=== PATIENT | male | born 1990 | race Hispanic/Latino ===

== ENCOUNTER 2020-12-22 23:09 | Emergency (ER) | payer BC ==
[2020-12-22] MEDS ORDERED: SODIUM CHLORIDE 0.9% 1000 ML 1,000 ML IV ONE (23:26)
[2020-12-22] MEDS ORDERED: ONDANSETRON 4 MG/2 ML INJ IM ONE (23:27)
--- NOTE | 2020-12-22 23:29 | Emergency Department Report ---
History of Present Illness - General Chief Complaint: Altered Mental Status Stated Complaint: OVERDOSE Time Seen by Provider: 12/22/20 23:09 Source: EMS Mode of arrival: Stretcher Limitations: Altered Mental Status, Physical Limitation - History of Present Illness Initial Comments: Patient is a male patient of unknown age that presents to the emergency room for overdose and altered mental status. Patient was brought in by EMS. EMS states that the patient was picked up at a local hotel. EMS states they do not know the patient's name or age. EMS states that they found the patient with pinpoint pupils and gave the patient 4 mg of Narcan and no response. Patient's vital signs are stable. Patient oxygenating well. -: Sudden Treatments Prior to Arrival: oxygen, narcan, IV fluids - Related Data Previous Rx's Medication Instructions Recorded Last Taken Type levoFLOXacin [Levaquin TAB] 500 mg PO QDAY 10 Days #10 tablet 12/23/20 Unknown Rx Allergies Allergy/AdvReac Type Severity Reaction Status Date / Time No Known Allergies Allergy Verified 12/23/20 00:15 ED Review of Systems ROS: Stated complaint: OVERDOSE Other details as noted in HPI Comment: Unobtainable due to pts medical conditions ED Past Medical Hx - Past Medical History Previous Medical History?: No - Surgical History Past Surgical History?: No - Family History Family history: no significant - Social History Smoking Status: Unknown if ever smoked Substance Use Type: Other - Medications Home Medications: Home Medications Medication Instructions Recorded Confirmed Last Taken Type levoFLOXacin [Levaquin TAB] 500 mg PO QDAY 10 Days #10 tablet 12/23/20 Unknown Rx ED Physical Exam - General Limitations: Altered Mental Status General appearance: obtunded - Head Head exam: Present: atraumatic, normocephalic - Eye Eye exam: Present: normal appearance, other (Pupils pinpoint) - ENT ENT exam: Present: mucous membranes dry - Neck Neck exam: Present: normal inspection - Respiratory Respiratory exam: Present: normal lung sounds bilaterally. Absent: respiratory distress, wheezes, rales - Cardiovascular Cardiovascular Exam: Present: regular rate, normal rhythm. Absent: systolic m urmur, diastolic murmur, rubs, gallop - GI/Abdominal GI/Abdominal exam: Present: soft, normal bowel sounds - Rectal Rectal exam: Present: deferred - Extremities Exam Extremities exam: Present: normal inspection - Back Exam Back exam: Present: normal inspection - Neurological Exam Neurological exam: Present: altered - Expanded Neurological Exam Expanded Best Eye Response ([place]): (2) open to pain Best Motor Response ([place]): (5) localizes to pain Best Verbal Response ([place]): (2) incomprehsible sounds [place] Total: 9 - Skin Skin exam: Present: warm, dry, intact, normal color. Absent: rash ED Course Vital Signs 12/22/20 23:58 Temperature 97 F L Pulse Rate 85 Respiratory 14 Rate Blood Pressure 121/57 [Right] O2 Sat by Pulse 96 Oximetry - Reevaluation(s) Reevaluation #1: After initial evaluation, the patient began to projectile vomit. Patient will be given Zofran and IV placed. 12/22/20 23:26 Reevaluation #2: No change in neuro status. Patient arousable with pain. Patient is on the supervisor forming and tempering. Patient's vital signs are stable. Patient is 97% on room air. 12/23/20 00:04 Reevaluation #3: Patient is awake alert and oriented x3. Patient states she took GHB. Patient denies suicidal ideation. Patient states he was just trying to get high. 12/23/20 01:15 Reevaluation #4: Patient is awake alert and oriented x4. Patient denies suicidal ideation. Patient denies suicide attempt. Patient is stable for discharge. I discussed all results and clinical findings with patient. I discussed plan of care with patient. Patient agrees with plan of care. Patient is stable for discharge. Patient will be discharged home. Patient given discharge instructions. Patient voiced understanding of discharge instructions. 12/23/20 02:17 ED Medical Decision Making - Lab Data Result diagrams: 12/22/20 23:39 12/22/20 23:39 - EKG Data -: EKG Interpreted by Me EKG shows normal: sinus rhythm, axis, intervals, QRS complexes, ST-T waves Rate: normal - Radiology Data Radiology results: report reviewed, image reviewed interpreted by me: Chest x-ray: Possible pneumonia, no pneumothorax, no foreign body, no osseous findings, CT HEAD WITHOUT CONTRAST INDICATION / CLINICAL INFORMATION: Altered Mental Status. TECHNIQUE: All CT scans at this location are performed using CT dose reduction for ALARA by means of automated exposure control. COMPARISON: None available. FINDINGS: Motion artifact slightly limits examination. No acute intracranial hemorrhage. Ventricles are normal in size without midline shift mass effect. Mild ethmoid sinus disease. No acute bone findings. ADDITIONAL FINDINGS: None. IMPRESSION: 1. No acute intracranial abnormality. CHEST 1 VIEW 12/22/2020 10:53 PM INDICATION / CLINICAL INFORMATION: ams. COMPARISON: None available. FINDINGS: SUPPORT DEVICES: None. HEART / MEDIASTINUM: No significant abnormality. LUNGS / PLEURA: Low lung volumes with mild increase vascularity and interstitial prominence. No pneumothorax. - Medical Decision Making Patient is a 30-year-old male that presents emergency room with a drug overdose. Patient brought in by EMS and was unresponsive. Patient was given Narcan by EMS. No response with the Narcan. Patient was initially unresponsive and registered as a medical emergency. Patient later woke up and was able to provide his information. Patient stated that he took GHB with the intent of getting high. Patient denied suicidal ideations. Patient denied suicide attempt. Patient had labs done which were essentially unremarkable except for UTI on UA and elevated WBC. Patient given fluids in the ER. Patient had a chest x-ray done which was positive for a possible pneumonia. Patient will be treated for aspiration volume with Levaquin. Patient will need to follow-up with primary care for recheck of his lungs and labs. Patient had a head CT since he had altered mental status and was negative for acute findings. Patient EKG which was negative for acute findings showed a normal ST. I personally reviewed the x-ray and the EKG. Patient is stable for discharge. Patient does not require further emergency medical service or inpatient services. Patient will be discharged home. Patient given discharge instructions. Critical care time documented due to the multiple reassessments, prolonged time at the bedside, interpretation of diagnostics and labs. - Differential Diagnosis Overdose, altered mental status, ICH Critical Care Time: Yes Critical care time in (mins) excluding proc time.: 35 Critical care attestation.: If time is entered above; I have spent that time in minutes in the direct care of this critically ill patient, excluding procedure time. Critical Care Time: 35 MINUTES ED Disposition Clinical Impression: Altered mental status Qualifiers: Altered mental status type: unspecified Qualified Code(s): R41.82 - Altered mental status, unspecified Overdose Qualifiers: Encounter type: initial encounter Injury intent: accidental or unintentional Qualified Code(s): T50.901A - Poisoning by unspecified drugs, medicaments and biological substances, accidental (unintentional), initial encounter Urinary tract infection Qualifiers: Urinary tract infection type: acute cystitis Hematuria presence: with hematuria Qualified Code(s): N30.01 - Acute cystitis with hematuria Pneumonia Qualifiers: Pneumonia type: due to unspecified organism Laterality: unspecified laterality Lung location: unspecified part of lung Qualified Code(s): J18.9 - Pneumonia, unspecified organism Disposition: TO HOME OR SELFCARE Is pt being admited?: No Does the pt Need Aspirin: No Condition: Stable Instructions: Accidental Drug Poisoning, Adult, Antibiotic Medicine, Adult, [id number], Urinary Tract Infection, Adult, Bacterial Pneumonia (ED) Additional Instructions: Patient to follow-up with primary care in 2 to 3 days. Patient to follow-up with rehab facility in 2 to 3 days. Patient to avoid drug and alcohol use. Patient to rest. Patient to increase water. Patient to take Tylenol or ibuprofen as needed for pain. Patient to take meds as directed. Patient to return to the ER if condition worsens, changes or new symptoms arise. Patient to call one of the rehab facilities as soon as possible and begin drug rehabilitation. Prescriptions: levoFLOXacin [Levaquin TAB] 500 mg PO QDAY 10 Days #10 tablet Referrals: ANGELA BENNETT MD [Staff Physician] - 2-3 Days Time of Disposition: 02:02
--- NOTE | 2020-12-23 00:02 | XRay Report ---
CHEST 1 VIEW 12/22/2020 10:53 PM INDICATION / CLINICAL INFORMATION: ams. COMPARISON: None available. FINDINGS: SUPPORT DEVICES: None. HEART / MEDIASTINUM: No significant abnormality. LUNGS / PLEURA: Low lung volumes with mild increase vascularity and interstitial prominence. No pneum othorax. Signer Name: Beau Baum MD Signed: 12/22/2020 11:57 PM Workstation Name: [id number]
[2020-12-23 00:07] LABS: Basophils # (Auto) 0.1 K/mm3 (0.0-0.1); Basophils % (Auto) 0.7 % (0.0-1.8); Eosinophils # (Auto) 0.3 K/mm3 (0.0-0.4); Eosinophils % (Auto) 2.3 % (0.0-4.3); Hematocrit 50.1 % (35.5-45.6); Hemoglobin 16.5 gm/dl (11.8-15.2); Lymphocytes % (Auto) 14.6 % (13.4-35.0); Mean Corpuscular HGB Conc 33 % (32-34); Mean Corpuscular Volume 95 fl (84-94); Monocytes # (Auto) 0.6 K/mm3 (0.0-0.8); Monocytes % (Auto) 4.5 % (0.0-7.3); Platelet Count 287 K/mm3 (140-440); Red Blood Count 5.26 M/mm3 (3.65-5.03)
[2020-12-23 00:19] LABS: Bilirubin,Urine NEG (Negative); Blood,Urine MOD (Negative); Color,Urine Yellow (Yellow); Granular Casts,Urine 12 /LPF; Hyaline Casts,Urine 12 /LPF; Mucus,Urine 2+ /HPF
[2020-12-23 00:27] LABS: Amphetamine Screen,Urine PRESUMPTIVE POSITIVE; Benzodiazepines Screen,Urine PRESUMPTIVE NEGATIVE; Cannabinoid Screen,Urine PRESUMPTIVE NEGATIVE; Cocaine Screen,Urine PRESUMPTIVE NEGATIVE; Methadone Screen,Urine PRESUMPTIVE NEGATIVE; Opiate Screen,Urine PRESUMPTIVE NEGATIVE
[2020-12-23 00:38] LABS: Alanine Aminotransferase 26 units/L (7-56); Albumin 4.7 g/dL (3.9-5); BUN/Creatinine Ratio 14; Blood Urea Nitrogen 14 mg/dL (9-20); Calcium 9.4 mg/dL (8.4-10.2); Hemolysis Index 9
--- NOTE | 2020-12-23 01:49 | Cat Scan Report ---
CT HEAD WITHOUT CONTRAST INDICATION / CLINICAL INFORMATION: Altered Mental Status. TECHNIQUE: All CT scans at this location are performed using CT dose reduction for ALARA by means of automated e xposure control. COMPARISON: None available. FINDINGS: Motion artifact slightly limits examination. No acute intracranial hemorrhage. Ventricles are normal in size without midline shift mass effect. Mild ethmoid sinus disease. No acute bone findings. ADDITIONAL FINDINGS: None. IMPRESSION: 1. No acute intracranial abnormality. Signer Name: Beau Baum MD Signed: 12/23/2020 1:44 AM Workstation Name: [id number]
[2020-12-23 03:21] VITALS: BP 125/77
--- NOTE | 2020-12-23 18:11 | Electrocardiograph Report ---
[facility] Test Date: 2020-12-23 Test Time: 00:49:54 Pat Name: PORFIRIO CONWAY Department: Room: Gender: M [employer] Operations Manager: NURSE : 1990 Requested By: ANNELISE EVANS III Order Number: [id number] Reading MD: Julius George Measurements Intervals [place] Rate: 93 P: 57 IA: 166 QRS: 70 QRSD: 95 T: 44 QT: 381 QTc: 473 Interpretive Statements Sinus rhythm No previous ECG available for comparison Electronically Signed On 12-23-2020 18:10:25 EDT by Julius George
== END 2020-12-23 03:21 | disposition home or self-care (01) ==
LOC: ED 23:09
DX: T50.901A Poisoning by unspecified drugs, medicaments and biological substances, accidental (unintentional), initial encounter (principal); N39.0 Urinary tract infection, site not specified; J18.9 Pneumonia, unspecified organism; R41.82 Altered mental status, unspecified; Z79.899 Other long term (current) drug therapy; Y92.89 Other specified places as the place of occurrence of the external cause
CPT/HCPCS: 36415; 70450; 71045; 80053; 80307; 81001; 82140; 82550; 84484; 85025; 93005; 96360; 96372; 99285; J2405; J7030; 80320; G0480